=== PATIENT | male | born 1985 | race Caucasian/White ===

== ENCOUNTER 2020-07-17 19:11 | Emergency (ER) | payer MEDICAID, SELFPAY ==
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
[2020-07-17 19:16] VITALS: BP 154/94; PULSE 71; TEMP 36.7; O2SAT 98
--- NOTE | 2020-07-17 19:49 | NUR.NOTE ---
Nursing Note: rerferal sent to cm to est pcp and seen within a week
[2020-07-17] MEDS: Cephalexin 500 MG CAP PO ×2 (20:03→20:04)
[2020-07-17] MEDS: Sulfameth/Trimeth DS TAB 1 TAB PO ×2 (20:03→20:05)
== END 2020-07-17 20:05 | disposition home or self-care (01) ==
PROVIDERS: Emergency Provider Physician Assistant
DX: L03.116 Cellulitis of left lower limb (principal); T24.231A Burn of second degree of right lower leg, initial encounter; X16.XXXA Contact with hot heating appliances, radiators and pipes, initial encounter; V28.4XXA Motorcycle driver injured in noncollision transport accident in traffic accident, initial encounter; E03.0 Congenital hypothyroidism with diffuse goiter
CPT/HCPCS: 16020; 90471

== ENCOUNTER 2020-08-23 13:15 | Emergency (ER) | payer MEDICAID, SELFPAY ==
[2020-08-23 13:20] VITALS: BP 157/84; PULSE 83; RESP 16; TEMP 36.4; O2SAT 97
--- NOTE | 2020-08-23 13:41 | ED.GENADUL_ITS ---
Discharge Plan Disposition Patient Disposition: HOME Condition: Stable Discharge Details Clinical Impression: Cellulitis Primary Care Provider: Tete Quiroz ED Provider: Harsh Robertson Home Meds and New Rx's Prescriptions: New cephalexin [Keflex] 500 mg capsule 500 mg PO QID 10 Days Qty: 40 RF: 0 Continued ibuprofen 800 MG tablet 800 mg PO Q8H PRN PRN (Reason: Pain) Qty: 30 RF: 0 Discharge Instructions Instructions: Cellulitis (ED) Additional Instructions: Keflex as directed. Keep the area clean and dry, you may change antibiotic ointment dressing daily. Warm soaks or compresses every 2 hours for 20 minutes. Rest, elevate. [id number] Tylenol and/or Motrin as directed for discomfort. Please watch for new or worsening symptoms and return to the ER for any concerns. I do recommend reaching out your primary care provider later today or tomorrow for reevaluation sometime next week. Medical Decision Making 35-year-old gentleman presents with left finger infection. He appears well, nontoxic, afebrile. Neuro, vascular, tendon intact. Appears to have local cellulitis without evidence of tenosynovitis or septic joint. Will provide antibiotic prescription and we discussed conservative therapy. Patient without additional questions or concerns and is comfortable discharge. Medical Records Medical records reviewed: Yes I reviewed the patient's medical records. HPI General Mode of arrival: ambulatory . Date/Time Provider Initiated Documentation: 08/23/20 13:15 . Limitations to Documentation: no limitations . Information obtained by: patient . HPI Narrative: This is a 35-year-old gentleman, no significant past medical history, presenting to the ER for concern of a left index finger infection. He is left-hand dominant. Tetanus status is up-to-date. He reports a few days ago he was using a saw, developed a blister on his left index finger. Subsequently that blister has ruptured and now has localized swelling, erythema, warmth around that finger primarily on the extensor aspect. He denies fever, rash elsewhere on his body, numbness, tingling, weakness. Patient concerned about infection and that he may require antibiotics. Related Data Home Medications Medication Instructions Recorded Confirmed ibuprofen 800 mg PO Q8H PRN PRN #30 tablet 10/26/16 08/23/20 cephalexin [Keflex] 500 mg PO QID 10 Days #40 cap 08/23/20 Previous Rx's Medication Instructions Recorded ibuprofen 800 mg PO Q8H PRN PRN #30 tablet 10/26/16 cephalexin [Keflex] 500 mg PO QID 10 Days #40 cap 08/23/20 Allergies Allergy/AdvReac Type Severity Reaction Status Date / Time No Known Allergies Allergy Unverified 08/23/20 13:24 General Stated Complaint: Cellulitis FLOR: 3 Review of Systems Constitutional Constitutional: Denies fever(s) Musculoskeletal Musculoskeletal: Denies arthralgias, Reports joint swelling, Denies numbness, Reports stiffness and Denies tingling Integumentary/Breasts Skin/Breast: Reports erythema Neurologic Neurologic: Denies numbness and Denies tingling PFSH Social History Smoking/Tobacco Use Status: Former Tobacco Use Alcohol Intake: current Alcohol Intake frequency: holidays/special occasions only Alcohol type: beer Drug use: Socially Substance use type: does not use Do you feel safe at home: Yes Do you feel safe in your relationship?: Yes Exam Const General: cooperative, healthy appearing, comfortable and no acute distress Orientation: alert and awake HENMT Head: normal to inspection, normocephalic and atraumatic Mouth: moist mucous membranes Eyes Conjunctivae: conjunctivae normal Neck Neck: normal visual inspection, trachea midline and supple Resp Effort & Inspection: normal respiratory effort and able to speak in complete sentences Cardio Rate: regular rate Rhythm: regular rhythm Skin General skin exam: no rashes or lesions noted Neuro General: patient alert, patient awake, moves all extremities and no focal motor deficits Motor: muscle tone normal throughout Sensory Exam: no sensory deficits noted Extrem Hand/finger images: 1. Ruptured blister over the PIP joint. 2. Mild erythema, swelling, warmth, tenderness. There is no obvious lymphangitic streaking. Full range of motion. Neuro, vascular, tendon intact. No increased discomfort with passive range of motion. Normal capillary refill Psych Appearance: grossly normal Mental Status: mental status grossly normal Course Vital Signs Vital signs: Vital Signs Temperature 36.4 C L 08/23/20 13:20 Pulse 83 08/23/20 13:20 Respiratory Rate 16 08/23/20 13:20 Blood Pressure 157/84 H 08/23/20 13:20 Pulse Oximetry 97 08/23/20 13:20 Temperature 36.4 C L 08/23/20 13:20 Temperature Source Tympanic 08/23/20 13:20 Pulse 83 08/23/20 13:20 Respiratory Rate 16 08/23/20 13:20 Respiratory Effort Non-Labored 08/23/20 13:23 Blood Pressure 157/84 H 08/23/20 13:20 Blood Pressure Position Sitting 08/23/20 13:20 Pulse Oximetry 97 08/23/20 13:20 Oxygen Delivery Method Room Air 08/23/20 13:20 Oxygen Flow Rate 0 08/23/20 13:20 Pain Level 2 08/23/20 13:20
== END 2020-08-23 13:56 | disposition home or self-care (01) ==
PROVIDERS: Emergency Provider Physician Assistant; PCP Nurse Practitioner
DX: S60.421A Blister (nonthermal) of left index finger, initial encounter (principal); L03.012 Cellulitis of left finger; X50.3XXA Overexertion from repetitive movements, initial encounter
CPT/HCPCS: 99283

== ENCOUNTER 2020-09-07 01:28 | Outpatient (CLI) | payer MEDICAID, SELFPAY ==
[2020-09-07 15:37] LABS: Hemoglobin A1C 5.9 % (<5.7)
[2020-09-07 15:57] LABS: Calculated LDL 142 mg/dL (<100); Cholesterol 246 mg/dL (<200); HDL Cholesterol 50 mg/dL (40-60); Triglyceride 274 mg/dL (<150)
== END 2020-09-07 01:48 ==
PROVIDERS: PCP Nurse Practitioner; Visit Provider Nurse Practitioner
DX: Z13.1 Encounter for screening for diabetes mellitus (principal); Z13.6 Encounter for screening for cardiovascular disorders
CPT/HCPCS: 36415; 80061; 83036

== ENCOUNTER 2022-06-22 11:58 | Emergency (ER) | payer MEDICAID, SELFPAY ==
[2022-06-22 12:01] VITALS: BP 135/86; PULSE 86; RESP 16; TEMP 37.2; O2SAT 96
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
== END 2022-06-22 12:22 | disposition home or self-care (01) ==
PROVIDERS: Emergency Provider Physician Assistant; PCP Nurse Practitioner
DX: S76.312A Strain of muscle, fascia and tendon of the posterior muscle group at thigh level, left thigh, initial encounter (principal); Z87.891 Personal history of nicotine dependence; X50.1XXA Overexertion from prolonged static or awkward postures, initial encounter
CPT/HCPCS: 99281; 99282